=== PATIENT | male | born 1960 | race Caucasian/White ===

== ENCOUNTER 2018-05-25 10:12 | Day surgery (SDC) | payer MEDICAID, OTHER ==
[~2018-05-25] VITALS: Ht 162.6 cm; Wt 75.9 kg
[2018-05-25] VITALS (14 sets, daily range): BP systolic 103–162; BP diastolic 75–95; PULSE 76–98; RESP 14–19; Ht 162.6 cm; Wt 75.9 kg
[~2018-05-25 10:12] MED LIST: AMLODIPINE; ASPIRIN; CIPROFLOXACIN 400MG/D5W 200 ML IVPB ONE; LISINOPRIL; METOFORMIN
[2018-05-25] MEDS ORDERED: SITA100T11 PO (10:51)
[2018-05-25] MEDS ORDERED: ATOR40TA68 PO (10:51)
[2018-05-25] MEDS ORDERED: AMLO-147 PO (10:51)
[2018-05-25] MEDS ORDERED: INSU100I33 SC (10:52)
[2018-05-25] MEDS ORDERED: LISI-471 PO (10:52)
[2018-05-25] MEDS ORDERED: METF100010 PO (10:53)
[2018-05-25] MEDS ORDERED: IOHEXOL 300MG/ML 30 ML BTL ONE (14:56)
--- NOTE | 2018-05-25 14:57 | PREAC ---
Date/Time of Note Date/Time of Note DATE: 05/25/18 TIME: 14:56 Anesthesia Eval and Record Evaluation Time Pre-Procedure Interview DATE: 05/25/18 TIME: 14:56 Age 57 Sex male NPO: 8 hrs Preoperative diagnosis kidney stones Planned procedure cystoscopy Past Medical History Past Medical History: Includes Cardio: HTN, Dyslipidemia Endo: Diabetes GI: GERD Surgery & Anesthesia Issues No known issue Meds Anticoagulation: No Beta Ermelinda within 24 hr: No Reason Beta Ermelinda not given: Pt. not on B-Ermelinda Reported Medications Metformin Hcl* (Metformin Hcl*) 1,000 Mg Tablet, 1000 MG PO WITH BREAKFAST DINNE, #60 TAB 05/25/18 Insulin Glargine,Hum.rec.anlog (Basaglar Kwikpen U-100) 100 Unit/1 Ml Insuln.pen, 22 UNIT SC QHS, EA 05/25/18 Lisinopril* (Lisinopril*) 20 Mg Tablet, 20 MG PO BID, #30 TAB 05/25/18 Amlodipine Besylate* (Amlodipine Besylate*) 10 Mg Tablet, 10 MG PO DAILY, #30 TAB 05/25/18 Sitagliptin* (Januvia*) 100 Mg Tablet, 100 MG PO DAILY, #30 TAB 05/25/18 Atorvastatin* (Atorvastatin*) 40 Mg Tablet, 40 MG PO QHS, #30 TAB 05/25/18 Discontinued Reported Medications [Aspirin] No Conflict Check 02/26/16 [Metoformin] No Conflict Check 02/26/16 [Amlodipine] No Conflict Check 02/26/16 [Lisinopril] No Conflict Check 02/26/16 Meds reviewed: Yes Allergies Coded Allergies: No Known Allergy (Unverified , 05/25/18) Allergies Reviewed: Yes Labs/Studies Labs Reviewed: Reviewed by anesthesiologist test: N/A Pre-procedure Exam Last vitals Vital Signs Date Temp Pulse Resp B/P (MAP) Pulse Ox O2 O2 Flow FiO2 Time Delivery Rate 05/25/18 97.0 79 16 137/86 98 Room Air 12:19 (103) Airway: Adequate mouth opening, Adequate thyromental dist Mallampati: Mallampati III Teeth: Normal Lung: Normal Heart: Normal ASA Physical Status ASA physical status: 3 Emergency: None Pre-operative Attestations Prior to commencing anesthesia and surgery, the patient was re-evaluated, there was verification of: *The patient's identity *The results of appropriate recent lab work and preoperative vital signs *The above evaluation not changing prior to induction *Anesthetic plan, risk benefits, alternative and complications discussed with patient/family; questions answered; patient/family understands, accepts and wishes to proceed. HANS RAMIREZ DO May 25, 2018 14:57
[2018-05-25] MEDS ORDERED: LIDOCAINE 1% (MDV) 20 ML INJ ONE (15:00)
[2018-05-25] MEDS ORDERED: PROPOFOL 20 ML ONE (15:00)
[2018-05-25] MEDS ORDERED: MIDAZOLAM 1 MG/ML 2 ML INJ ONE (15:00)
[2018-05-25] MEDS ORDERED: CIPROFLOXACIN 400MG/D5W 200 ML ONE (15:02)
[2018-05-25] MEDS ORDERED: SUGAMMADEX SODIUM 200 MG/2 ML VIAL IV ONE (15:39)
--- NOTE | 2018-05-25 15:47 | PDOCDIS ---
Discharge Instructions DIAGNOSIS Discharge Diagnosis left ureteral stricture CONDITION [place] Patient Condition: [place] Good HOME CARE INSTRUCTIONS: [place] Diet Instructions: [place] Regular ACTIVITY: Allen Activity Restrictions: [place] Slowly Increase Activity [place] Bathing Restrictions: [place] Shower FOLLOW UP/APPOINTMENTS Follow-up Plan follow up in office in 2 weeks for removal of stent REFERRALS [place] Referring Provider: COLTON Coronado EVAN May 25, 2018 15:47
--- NOTE | 2018-05-25 15:49 | OPR ---
Date/Time of Note Date/Time of Note DATE: 05/25/18 TIME: 15:48 Operative Report Procedure Date: May 25, 2018 Preoperative Diagnosis left hydro Postoperative Diagnosis left ureteral stricture Operation/Procedure Performed cysto, left rgp, left ureteroscopy with dilation of stricture, stent Surgeon mirian [employer] Worker none Anesthesia Type: general Estimated Blood Loss: none Transfusion none Specimen none Grafts/Implants none Tubes/Drains 26 cm 4.8 f stent Complications none Pt Condition Post Procedure: stable Disposition: PACU Indications hdyro - stricture Procedure Description dict [id number] COLTON CAMPBELL May 25, 2018 15:49
--- NOTE | 2018-05-25 16:01 | PAC ---
Date/Time of Note Date/Time of Note DATE: 05/25/18 TIME: 16:00 Post-Anesthesia Notes Post-Anesthesia Note Last documented vital signs Vital Signs Date Temp Pulse Resp B/P (MAP) Pulse Ox O2 O2 Flow FiO2 Time Delivery Rate 05/25/18 98 69 16 125/65 98 Room Air 1600 Activity: WNL Respiratory function: WNL Cardiovascular function: WNL Mental status: Baseline Pain reasonably controlled: Yes Hydration appropriate: Yes Nausea/Vomiting absent: Yes HANS RAMIREZ DO May 25, 2018 16:01
--- NOTE | 2018-05-25 16:16 | OPR ---
DATE OF OPERATION: PREOPERATIVE DIAGNOSES: 1. Left hydronephrosis. 2. Asymmetric bladder wall thickening. POSTOPERATIVE DIAGNOSIS: Distal left ureteral stricture. PROCEDURES: Cystoscopy, left ureteroscopy with dilation of distal ureteral stricture, insertion of l eft ureteral stent. SURGEON: Fortino Ortega MD ANESTHESIA: General. COMPLICATIONS: None. ESTIMATED BLOOD LOSS: None. DRAINS: 26 cm 4.8 double-J ureteral stent. PROCEDURE IN DETAILS: The patient was brought to the operating room and placed on the operating tabl e in the supine lithotomy position. He was prepped and draped in usual fashion after anesthesia was induced. A timeout was undertaken. Appropriate pressure points were padded. He receive preoperativ e antibiotic therapy. Rigid cystoscopy was undertaken with a 12-degree, 30-degree and 70-degree angl e lens. No abnormalities of the anterior urethra could be appreciated. Trilobar enlargement of the prostatic lobes was appreciated with the median lobe protruding into the bladder. The bladder was in spected in a systematic fashion with a 12-degree, 30-degree and 70-degree angle lens. Trabeculation of the bladder could be appreciated. There is no bladder lesion, bladder tumor or mass that was note d. There were noted erythematous regions within the bladder. The bladder lining is within normal li mits. Left retrograde pyelogram was undertaken which demonstrates a distal J ureteral hooking with d ilation of the ureter as well as dilation of left renal pelvis and a bifid renal pelvis. Due the abo ve history and the above findings, it was decided to undertake ureteroscopy. There was difficulty in placing a wire up into the ureter due to a stricture as well as J hooking. With gentle manipulation and utilization of the open-ended catheter, the wire was placed up to the level of the renal pelvis and the ureteroscope was inserted into the distal ureter where concentric stricture was identified an d subsequently dilated with 2 wires thus allowing the ureteroscope to be placed through the intramura l portion of the ureter and into a dilated portion of the ureter in the distal aspect. The ureter wa s noted to be dilated, which allowed for easy passing of the ureteroscope up to the level of the teena l pelvis. The ureter was evaluated in antegrade and retrograde fashion. There was no foreign body, bladder stone or tumor. At this point, the distal ureter is open and thus it was decided to place a stent to heal over. A 26 cm 4.8 double-J ureteral stent was then inserted with the proximal aspect c oiling in the upper pole of the kidney and the distal aspect coiling within the bladder attached to t he distal end with a tape or string. Proper positioning was confirmed with direct vision fluoroscopy and a KUB. His bladder was emptied and he was transferred to recovery room in stable condition. He will be discharged home on [place] 1 tab p.o. q.6 hours p.r.n., dispensed #25. He will follow up in t office in 2 weeks' time for cystoscopy, stent removal. Further intervention evaluation, pending c linical course and results of the above. Dictated By: FORTINO OWENS/NTS Conf#: [id number] DID#: [id number]
[2018-05-25] MEDS ORDERED: HYDROmorphONE 1 MG/5 ML IV SYRINGE IV PRN (16:30)
== END 2018-05-25 17:20 | disposition home or self-care (01) ==
LOC: SDS 10:12
PROVIDERS: ATTEND Urology
DX: N35.819 Other urethral stricture, male, unspecified site (principal); I10 Essential (primary) hypertension; E78.5 Hyperlipidemia, unspecified; E11.9 Type 2 diabetes mellitus without complications
CPT/HCPCS: 74420; 82962; 85610; 85730; C2617; J0744; J2250; Q9967